=== PATIENT | male | born 1990 | race Caucasian/White ===

== ENCOUNTER → 2016-12-07 | Outpatient (CLI) | payer BC ==
[~2016-12-07] MED LIST: ABILIFY 10MG TA10 MG PO; ATARAX 10MG10 MG/TAB PO; ATARAX 25MG25 MG/TAB PO; CARDIZEM CD 18180 MG PO; CYMBALTA 30MG30 MG PO; DEPAKOTE500 MG PO; GRALISE300 MG PO; INDERAL LA120 MG PO; INDERAL40 MG PO; LORTAB 5/500 501 TAB PO; LORTABELIX PO; NORCO 325 MG-51 TAB PO; PAXIL 20MG20 MG PO; PAXIL40 MG PO; PRISTIQ 50 MG T50 MG PO; PRISTIQ100 MG PO; SEROQUEL 1100 MG/TAB PO; SEROQUEL 200MG200 MG PO; SEROQUEL XR150 MG PO; SEROQUEL300 MG PO; SINEQUAN150 MG PO; TOPAMAX 100MG100 M1 PO; TOPAMAX50 MG PO; ULTRAM 50MG TAB50 MG PO; VISTARIL50 MG; ZOFRAN 4MG T4 MG/TAB PO
== END ==
LOC: BHSO 09:43
DX: F31.81 Bipolar II disorder (principal)

== ENCOUNTER → 2017-09-21 | Outpatient (CLI) | payer BC | LOC: BHSO 09:59 | DX: F31.81 Bipolar II disorder (principal) | CPT/HCPCS: G0463 ==

== ENCOUNTER → 2018-12-26 | Outpatient (CLI) | payer BC | LOC: BHSO 14:42 | DX: F31.81 Bipolar II disorder (principal) | CPT/HCPCS: G0463 ==

== ENCOUNTER → 2019-01-25 | Outpatient (CLI) | payer BC | LOC: BHSO 15:53 | DX: F31.81 Bipolar II disorder (principal) | CPT/HCPCS: G0463 ==

== ENCOUNTER 2021-04-02 12:11 | Emergency (ER) | payer BC ==
[~2021-04-02] VITALS: Ht 193 cm; Wt 102.3 kg
[2021-04-02 12:16] VITALS: TEMP 97.9
[2021-04-02 13:05] LABS: BASO % 0.1 % (0.0-2.0); EOS % 0.4 % (0-4.0); GRAN # 4.8 (1.4-6.5); GRAN % 60.6 % (42.2-75.2); HEMATOCRIT 43.9 % (42.0-52.0); HEMOGLOBIN 14.1 g/dl (13.5-18.0); LYMPH # 2.6 (1.2-3.4); LYMPH % 32.6 % (20.0-51.0); MEAN CELL VOLUME 87 fl (80.0-100.0); MEAN CORPUSCULAR HEMOGLOBIN 28 pg (27.0-31.0); MEAN CORPUSCULAR HGB CONC 32 g/dl (33.0-37.0); MEAN PLATELET VOLUME 9.9 fl (7.4-10.4); MONO # 0.5 (0.1-0.6); MONO % 5.9 % (1.7-9.3); PLATELET COUNT 271 K/mm3 (130-400); RED BLOOD COUNT 5.04 M/mm3 (4.20-5.60); REDCELL DISTRIBUTION WIDTH-CV 14.2 % (11.5-14.5)
[2021-04-02 13:13] LABS: ALBUMIN 5.1 gm/dL (3.5-5.0); BILIRUBIN,TOTAL 1.5 mg/dL (0.0-1.0); C-REACTIVE PROTEIN 0.6 mg/dL (0.0-0.9); CALCIUM 9.6 mg/dL (8.4-10.2); CREATININE, serum 0.8 (0.66-1.25); POTASSIUM 3.8 mmol/L (3.4-5.0); TOTAL PROTEIN 9.1 gm/dL (6.4-8.2)
[2021-04-02 13:29] LABS: ERYTHROCYTE SEDIMENTATION RATE 5 mm/hr (0-15)
[2021-04-02] MEDS ORDERED: BACTRIM DS 8001 TAB PO (19:03)
[2021-04-02 19:30] VITALS: BP 141/99; PULSE 99
== END 2021-04-02 19:30 | disposition home or self-care (01) ==
LOC: COL.ER 12:11
PROVIDERS: Nurse Practitioner Primary Care
DX: L03.011 Cellulitis of right finger (principal); M79.601 Pain in right arm; Z88.6 Allergy status to analgesic agent
CPT/HCPCS: A9585; J1200; J1885; J2060; J2405; J2930; J3010; J3370; J7050